=== PATIENT | female | born 1975 | race Caucasian/White ===

== ENCOUNTER 2018-07-10 12:14 | Emergency (ER) | payer OTHER, MEDICAID ==
[~2018-07-10] VITALS: Ht 167.6 cm; Wt 54.4 kg
[~2018-07-10 12:14] MED LIST: ADDERALL 30 MG30 MG; ANTIFUNGAL15 G1 VAG; CELEXA40 MG; COLACE100 MG PO; CYMBALTA30 MG PO; DOXYCYCLINE 10100 MG; FLAGYL500 MG; FLAGYL500 MG PO; HYDROCODON-ACE1 EAC2; MS CONTIN15 MG; MS CONTIN15 MG PO; PERCOCET 5-3251 EACH PO; SEROQUEL 50 MG50 MG; TORADOL 10 MG T10 MG PO; ZANAFLEX4 MG PO; ZOFRAN4 MG PO
[2018-07-10] MEDS ORDERED: ARYMO ER60 MG PO (12:30)
[2018-07-10] MEDS ORDERED: ROBAXIN 750 MG750 M1 PO (12:31)
[2018-07-10 13:09] LABS: ABSOLUTE BASOPHILS 0.1 thou/uL (0.0-0.2); ABSOLUTE EOSINOPHILS 0.2 thou/uL (0.0-0.7); ABSOLUTE LYMPHOCYTES 2.2 thou/uL (0.8-5.3); ABSOLUTE MONOCYTES 0.3 thou/uL (0.0-1.2); ABSOLUTE NEUTROPHILS 5.5 thou/uL (1.6-8.1); BASOPHILS 0.9 %; EOSINOPHILS 2.1 %; HEMATOCRIT 44.8 % (37.0-47.0); LYMPHOCYTES 26.7 %; MCH 33.8 pg (26.0-34.0); MCHC 33.6 g/dL (28.0-37.0); MCV 100.6 fL (80.0-100.0); MONOCYTES 3.3 %; MPV 7.7 fl. (7.2-11.1); NUCLEATED RBCS 0 /100WBC; PLATELET COUNT* 277 thou/uL (150-400); RBC 4.45 mil/uL (4.20-5.00); RDW-CV 13.9 % (10.5-14.5); WBC 8.1 thou/uL (4.0-11.0)
[2018-07-10 13:18] LABS: CALCIUM 8.6 mg/dL (8.5-10.1); CREATININE 0.8 mg/dL (0.6-1.3); POTASSIUM 3.4 mmol/L (3.5-5.1)
[2018-07-10 13:22] LABS: ALBUMIN 4.1 g/dL (3.4-5.0); TOTAL BILIRUBIN 0.3 mg/dL (<0.1-1.0); TOTAL PROTEIN 7.7 g/dL (6.4-8.2)
[2018-07-10] MEDS ORDERED: MEDROLDOSEPACK PO (13:31)
[2018-07-10] MEDS ORDERED: TRIAMCINOLONE A80 G2 TOP (13:31)
[2018-07-10] MEDS ORDERED: PEPCID20 MG PO (13:31)
[2018-07-10 13:46] VITALS: BP 103/65
== END 2018-07-10 13:46 | disposition home or self-care (01) ==
LOC: M.ERS 12:14
PROVIDERS: Nurse Practitioner Family
DX: L23.9 Allergic contact dermatitis, unspecified cause (principal); F17.210 Nicotine dependence, cigarettes, uncomplicated; Z88.2 Allergy status to sulfonamides; Z88.0 Allergy status to penicillin; Z88.8 Allergy status to other drugs, medicaments and biological substances; Z98.890 Other specified postprocedural states